=== PATIENT | female | born 1960 | race Two or more races ===

== ENCOUNTER 2016-12-23 20:10 | Emergency (ER) | payer MEDICAID ==
[~2016-12-23] VITALS: Ht 170.2 cm; Wt 61.0 kg
[2016-12-24] MEDS ORDERED: KETOROLAC 60MG/2ML VIAL IM ONE (00:45)
[2016-12-24 01:02] VITALS: BP 118/73
== END 2016-12-24 01:30 | disposition home or self-care (01) ==
LOC: ER 20:10
DX: S80.862A Insect bite (nonvenomous), left lower leg, initial encounter (principal); S80.861A Insect bite (nonvenomous), right lower leg, initial encounter; L52 Erythema nodosum; F17.210 Nicotine dependence, cigarettes, uncomplicated; Z88.6 Allergy status to analgesic agent; Z98.890 Other specified postprocedural states; Z91.040 Latex allergy status; W57.XXXA Bitten or stung by nonvenomous insect and other nonvenomous arthropods, initial encounter; Y93.89 Activity, other specified; Y92.018 Other place in single-family (private) house as the place of occurrence of the external cause
CPT/HCPCS: 96372; 99283; J1885; Z7610